=== PATIENT | male | born 1980 | race Caucasian/White ===

== ENCOUNTER 2020-06-21 05:12 | Emergency (ER) | payer OTHER ==
[~2020-06-21] VITALS: Ht 167.6 cm; Wt 70.3 kg
[2020-06-21] MEDS ORDERED: ALBU90OI (05:29)
[2020-06-21] MEDS ORDERED: PRED20 PO (06:44)
== END 2020-06-21 07:21 | disposition home or self-care (01) ==
LOC: ER 05:12
DX: J06.9 Acute upper respiratory infection, unspecified (principal); J45.901 Unspecified asthma with (acute) exacerbation; Z20.828 Contact with and (suspected) exposure to other viral communicable diseases; I10 Essential (primary) hypertension; F17.210 Nicotine dependence, cigarettes, uncomplicated; Z79.899 Other long term (current) drug therapy
CPT/HCPCS: 71045; 87081; 87430; 99283-25; J7512; U0004

== ENCOUNTER 2020-10-20 02:59 | Emergency (ER) | payer OTHER ==
[~2020-10-20] VITALS: Ht 167.6 cm; Wt 74.8 kg
[~2020-10-20 02:59] MED LIST: ALBU90OI; PRED20 PO
== END 2020-10-20 04:18 | disposition home or self-care (01) ==
LOC: ER 02:59
DX: J06.9 Acute upper respiratory infection, unspecified (principal); Z79.52 Long term (current) use of systemic steroids
CPT/HCPCS: 99282; A9270

== ENCOUNTER 2021-04-03 23:13 | Emergency (ER) | payer OTHER ==
[~2021-04-03] VITALS: Ht 167.6 cm; Wt 63.5 kg
[2021-04-03] MEDS ORDERED: ALBU90OI INH (23:57)
== END 2021-04-04 00:12 | disposition home or self-care (01) ==
LOC: ER 23:13
DX: U07.1 COVID-19 (principal); J45.909 Unspecified asthma, uncomplicated; I10 Essential (primary) hypertension; F17.200 Nicotine dependence, unspecified, uncomplicated; F12.90 Cannabis use, unspecified, uncomplicated
CPT/HCPCS: 99284; A9270

== ENCOUNTER 2021-04-08 21:32 | Emergency (ER) | payer OTHER ==
[~2021-04-08] VITALS: Ht 167.6 cm; Wt 65.8 kg
[~2021-04-08 21:32] MED LIST changes: +ALBU90OI INH
== END 2021-04-08 22:15 | disposition home or self-care (01) ==
LOC: ER 21:32
DX: U07.1 COVID-19 (principal); F17.210 Nicotine dependence, cigarettes, uncomplicated; I10 Essential (primary) hypertension; J45.909 Unspecified asthma, uncomplicated; Z79.899 Other long term (current) drug therapy
CPT/HCPCS: 99284

== ENCOUNTER 2021-04-15 22:24 | Emergency (ER) | payer OTHER ==
[~2021-04-15] VITALS: Ht 167.6 cm; Wt 68.0 kg
== END 2021-04-16 00:04 | disposition home or self-care (01) ==
LOC: ER 22:24
DX: U07.1 COVID-19 (principal); I10 Essential (primary) hypertension; J45.909 Unspecified asthma, uncomplicated; F17.210 Nicotine dependence, cigarettes, uncomplicated; Z79.899 Other long term (current) drug therapy
CPT/HCPCS: 99283; A9270